=== PATIENT | female | born 1970 | race Two or more races ===

== ENCOUNTER 2020-02-14 15:39 | Emergency (ER) | payer OTHER ==
[~2020-02-14] VITALS: Ht 165.1 cm; Wt 108.9 kg
[~2020-02-14 15:39] MED LIST: ADULT ASPIRIN81 MG; NEURONTIN300 MG
[2020-02-14] MEDS ORDERED: PROPRANOLOL HCL40 MG (15:55)
[2020-02-14] MEDS ORDERED: CLONAZEPAM1 M1 (15:55)
[2020-02-14] MEDS ORDERED: NEURONTIN300 MG (15:56)
[2020-02-14] MEDS ORDERED: LASIX40 MG (15:56)
[2020-02-14] MEDS ORDERED: ZOLOFT25 MG (15:56)
== END 2020-02-14 18:21 | disposition home or self-care (01) ==
LOC: ER 15:39
DX: G43.809 Other migraine, not intractable, without status migrainosus (principal)

== ENCOUNTER 2023-04-24 16:55 | Emergency (ER) | payer OTHER ==
[~2023-04-24] VITALS: Ht 157.5 cm; Wt 117.9 kg
[~2023-04-24 16:55] MED LIST changes: +CLONAZEPAM1 M1; +LASIX40 MG; +PROPRANOLOL HCL40 MG; +ZOLOFT25 MG
== END 2023-04-24 19:47 | disposition home or self-care (01) ==
LOC: ER 16:55
DX: S01.21XA Laceration without foreign body of nose, initial encounter (principal); W54.0XXA Bitten by dog, initial encounter; Y93.9 Activity, unspecified; Y92.9 Unspecified place or not applicable; Y99.9 Unspecified external cause status

== ENCOUNTER 2025-05-04 10:31 | Emergency (ER) | payer OTHER ==
[~2025-05-04] VITALS: Ht 165.1 cm; Wt 117.9 kg
[2025-05-04 10:39] VITALS: BP 124/78
[2025-05-04] MEDS ORDERED: METFORMIN HCL500 M3 (10:40)
[2025-05-04] MEDS ORDERED: LEVOTHYROXINE25 MCG PO (10:40)
[2025-05-04] MEDS ORDERED: KETOROLAC TROMETHAMINE 60 MG VIAL IM ONE ×2 (10:45→10:59)
[2025-05-04 11:39] LABS: COVID-19 AG POSITIVE (NEGATIVE)
[2025-05-04 11:41] LABS: BASO % 0.1 % (0.1-1.2); EOS # 0.00 (0.04-0.54); EOS % 0.0 % (0.7-7.0); LYMPH # 1.20 (1.18-3.74); LYMPH % 14.8 % (19.3-53.1); MEAN PLATELET VOLUME 9.80 fl (9.4-12.4); MONO # 0.54 (0.24-0.82); MONO % 6.7 % (4.7-12.5); NEUT # 6.34 (1.56-6.13); NEUT % 78.0 % (34.0-71.1); RED CELL DISTRIBUTION WIDTH 15.0 % (11.6-14.4)
[2025-05-04] MEDS ORDERED: XOPENEX CO1.25 MG/0. IH (11:47)
[2025-05-04] MEDS ORDERED: PAXLOVID 300/11 EACH PO (11:47)
[2025-05-04] MEDS ORDERED: TUSNEL LIQUID178 ML PO (11:47)
[2025-05-04 11:51] VITALS: O2SAT 99
== END 2025-05-04 11:52 | disposition home or self-care (01) ==
LOC: ER 10:31
PROVIDERS: General Practice
DX: U07.1 COVID-19 (principal); Z91.013 Allergy to seafood; I10 Essential (primary) hypertension; E11.9 Type 2 diabetes mellitus without complications; Z79.84 Long term (current) use of oral hypoglycemic drugs